=== PATIENT | female | born 1935 | race Caucasian/White ===

== ENCOUNTER 2016-08-25 15:58 | Observation (INO) | payer BC ==
[~2016-08-25] VITALS: Ht 149.9 cm; Wt 58.0 kg
[~2016-08-25 15:58] MED LIST: DYZUNK; LEVO75TA36 PO; MELO7.5T5 PO; SIMV10TA2 PO
[2016-08-25] MEDS ORDERED: LEVO75TA PO (16:27)
[2016-08-25] MEDS ORDERED: PSYL43PO PO (16:27)
[2016-08-25] MEDS ORDERED: MULTTAB58 PO (16:27)
[2016-08-25] MEDS ORDERED: METO25TA3 PO (16:27)
[2016-08-25] MEDS ORDERED: OMEG10007 PO (16:27)
[2016-08-25] MEDS ORDERED: CALC500C70 PO (16:27)
[2016-08-25] MEDS ORDERED: LISI-729 PO (16:27)
--- NOTE | 2016-08-25 16:44 | EMERGENCY ROOM VISIT NOTE ---
History Report prepared by Frandy: Deyanira Chambers Under the Supervision of: Dr. Matt Reid M.D. First contact with patient: 16:32 Chief Complaint: DIZZY Stated Complaint: DIZZY Nursing Triage Summary: patient reports weakness and dizziness "ongoing for months", syncopal episode wednesday, states "just not feeling right, when I get up I get very dizzy." Sent by [facility]. History of Present Illness The patient is an 81 year old female who presents to the Emergency Room via ambulance with complaints of worsening weakness and dizziness over the past few months. The patient reports a syncopal episode 4 days ago. She states that she woke up, after a couple of minutes, on the floor of her garage. The patient was sent to the ED today from [facility] after noticing EKG changes. She denies chest pain, shortness of breath, or any additional associated symptoms. The patient has a history of a brain aneurysm. She denies a past cardiac history. Source of History: patient Onset: Over past few months Position: other (Global ) Timing: worsening Modifying Factors (Relieving): other (None ) Associated Symptoms: No SOB, No chest pain Review of Systems See HPI for pertinent positives & negatives. A total of 10 systems reviewed and were otherwise negative. Past Medical & Surgical Medical Problems: (1) Bleeding ulcer Surgical Problems: (1) Brain aneurysm (2) [place] teeth extracted Family History FH: cancer FH: diabetes mellitus FH: stroke Social History Smoking Status: Never Smoker Alcohol Use: occasionally Drug Use: none Marital Status: single Housing Status: lives alone Occupation Status: retired Current/Historical Medications Scheduled Calcium/Vitamin D ([place] 500 Plus D), 1 TAB PO PM Fish Oil ([place]-3), 1 CAP PO DAILY Levothyroxine Sodium (Synthroid), 75 MCG PO DAILY Lisinopril (Zestril), 5 MG PO PM Metoprolol Succ (Toprol Xl) (Toprol-Xl), 25 MG PO DAILY Multiple Vitamin (Multivitamin), 1 TAB PO DAILY Psyllium (Metamucil Free & Natural), 1 TSP PO QAM Allergies Coded Allergies: No Known Allergies (Verified , 08/25/16) Physical Exam Vital Signs Date Time Temp Pulse Resp B/P Pulse Ox O2 Delivery O2 Flow Rate FiO2 08/25/16 20:59 76 20 156/87 96 Room Air 08/25/16 19:05 90 18 132/68 96 Room Air 08/25/16 17:55 67 20 195/92 97 Room Air 08/25/16 16:19 68 08/25/16 16:03 63 20 214/84 99 76 207/84 70 195/95 08/25/16 16:01 36.6 60 18 217/84 96 Room Air Physical Exam GENERAL: Patient is well appearing and in no acute distress. HEENT: Mild tenderness over left scalp. Mucous membranes moist, no nasal congestion, no scleral icterus. NECK: No stridor, no adenopathy, no meningismus, trachea is midline. LUNGS: No dyspnea. Clear to auscultation and equal bilaterally. No wheeze, no rhonchi. HEART: Regular rate and rhythm. No murmurs, rubs, gallops appreciated. ABDOMEN: Soft, nontender, bowel sounds positive, no masses appreciated, no peritonitis. BACK: No midline tenderness, no CVA tenderness EXTREMITIES: Abrasion and bruising to left [place]. Normal motion all extremities, no cyanosis, no edema. NEUROLOGIC: Alert and oriented, no acute motor or sensory deficits, no focal weakness, cranial nerves grossly intact. SKIN: No rash, no jaundice, no diaphoresis. Medical Decision & Procedures ER Provider Diagnostic Interpretation: Radiology results and stated below per my review and radiologist interpretation: CT SCAN OF THE BRAIN WITHOUT IV CONTRAST CLINICAL HISTORY: Syncope. Head injury. COMPARISON STUDY: MR angiogram of the brain dated 01/30/2014. TECHNIQUE: Unenhanced axial CT scan of the brain is performed from the vertex to the skull base. The Examination is significant degraded by streak artifact from aneurysm coils. CT DOSE: 537.48 mGy.cm FINDINGS: Brain parenchyma: There are age-related involutional changes noting moderate patchy subcortical and periventricular microangiopathic change. There is no hemorrhage, mass effect, or evidence of acute territorial ischemia by CT criteria. 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 Connolly-white matter is preserved. No extra-axial fluid collection is seen. Ventricles, sulci, cisterns: Prominent secondary to involutional change. Intracranial vasculature: There is atherosclerotic calcification of the cavernous carotid and vertebral arteries. Aneurysm coils are noted along the left aspect of the [place]. Calvarium: The skeletal structures are osteopenic. No depressed calvarial fracture is seen. Sinuses and mastoids: An air-fluid level is noted in the right maxillary antrum. Trace fluid is also seen in the left maxillary antrum. The remaining visualized paranasal sinuses are clear. The mastoid air cells are well pneumatized. Findings suggest previous left mastoid surgery. Orbits: The bony orbits are grossly intact. IMPRESSION: 1. Senescent changes as above with no hemorrhage, mass effect, or evidence of acute territorial ischemia by CT criteria. 2. Aneurysm coils are again noted in the region of the left [place]. 3. Air-fluid levels are present within the maxillary antra. Electronically signed by: Kwaku Garcia M.D. 08/25/2016 5:28 PM Dictated Date/Time: 08/25/2016 5:25 PM SINGLE VIEW CHEST CLINICAL HISTORY: Syncope. FINDINGS: An AP, portable, upright chest radiograph is compared to study dated 08/30/2006. The examination is degraded by portable technique and patient rotation. The heart is top normal for projection and there is atherosclerotic calcification of the thoracic aorta. The pulmonary vasculature is noncongested. Chronic interstitial thickening and scattered calcified granulomas are unchanged. No airspace consolidation, large pleural effusion, or pneumothorax is seen. The skeletal structures are osteopenic. The bony thorax is grossly intact. IMPRESSION: No acute cardiopulmonary abnormality. Electronically signed by: Kwaku Garcia M.D. 08/25/2016 5:08 PM Dictated Date/Time: 08/25/2016 5:07 PM Laboratory Results 08/25/16 16:12 Red Blood Count 4.85, Mean Corpuscular Volume 86.6, Mean Corpuscular Hemoglobin 29.9, Mean Corpuscular Hemoglobin Concent 34.5, Mean Platelet Volume 10.0, Neutrophils (%) (Auto) 65.8, Lymphocytes (%) (Auto) 21.5, Monocytes (%) (Auto) 9.3, Eosinophils (%) (Auto) 2.6, Basophils (%) (Auto) 0.7, Neutrophils # (Auto) 4.71, Lymphocytes # (Auto) 1.54, Monocytes # (Auto) 0.67, Eosinophils # (Auto) 0.19, Basophils # (Auto) 0.05 08/25/16 16:12 Test 08/25/16 16:12 08/25/16 16:40 White Blood Count 7.17 K/uL (4.8-10.8) Red Blood Count 4.85 M/uL (4.2-5.4) Hemoglobin 14.5 g/dL (12.0-16.0) Hematocrit 42.0 % (37-47) Mean Corpuscular Volume 86.6 fL (80-100) Mean Corpuscular Hemoglobin 29.9 pg (25-34) Mean Corpuscular Hemoglobin Concent 34.5 g/dl (32-36) Platelet Count 311 K/uL (130-400) Mean Platelet Volume 10.0 fL (7.4-10.4) Neutrophils (%) (Auto) 65.8 % Lymphocytes (%) (Auto) 21.5 % Monocytes (%) (Auto) 9.3 % Eosinophils (%) (Auto) 2.6 % Basophils (%) (Auto) 0.7 % Neutrophils # (Auto) 4.71 K/uL (1.4-6.5) Lymphocytes # (Auto) 1.54 K/uL (1.2-3.4) Monocytes # (Auto) 0.67 K/uL (0.11-0.59) Eosinophils # (Auto) 0.19 K/uL (0-0.5) Basophils # (Auto) 0.05 K/uL (0-0.2) RDW Standard Deviation 47.0 fL (36.4-46.3) RDW Coefficient of Variation 14.8 % (11.5-14.5) Immature Granulocyte % (Auto) 0.1 % Immature Granulocyte # (Auto) 0.01 K/uL (0.00-0.02) Anion Gap 8.0 mmol/L (3-11) Est Creatinine Clear Calc Drug Dose 34.3 ml/min Estimated GFR () 62.3 Estimated GFR (Non- 53.7 BUN/Creatinine Ratio 24.6 (10-20) Calcium Level 9.0 mg/dl (8.5-10.1) Phosphorus Level 3.7 mg/dl (2.5-4.9) Magnesium Level 2.4 mg/dl (1.8-2.4) Total Creatine Kinase 51 U/L (26-192) Creatine Kinase MB 0.7 ng/ml (0.5-3.6) Creatine Kinase MB Ratio 1.4 (0-3.0) Troponin I < 0.015 ng/ml (0-0.045) Thyroid Stimulating Hormone (TSH) 0.761 uIu/ml (0.300-4.500) Urine Color YELLOW Urine Appearance CLEAR (CLEAR) Urine pH 7.0 (4.5-7.5) Urine Specific [place] 1.006 (1.000-1.030) Urine Protein NEG (NEG) Urine Glucose (UA) NEG (NEG) Urine Ketones NEG (NEG) Urine Occult Blood NEG (NEG) Urine Nitrite NEG (NEG) Urine Bilirubin NEG (NEG) Urine Urobilinogen NEG (NEG) Urine Leukocyte Esterase SMALL (NEG) Urine WBC (Auto) 1-5 /hpf (0-5) Urine RBC (Auto) 0-4 /hpf (0-4) Urine Hyaline Casts (Auto) 0 /lpf (0-5) Urine Epithelial Cells (Auto) 0-5 /lpf (0-5) Urine Bacteria (Auto) NEG (NEG) Laboratory results as reviewed by me. Medications Administered Medications (Trade) Dose Ordered Sig/Dary Route Start Time Stop Time Status Last Admin Dose Admin Labetalol HCl (Normodyne IV) 10 mg NOW STAT IV 08/25/16 17:41 08/25/16 17:42 DC 08/25/16 17:55 10 MG Calcium/Vitamin D (Caltrate Plus Tab) 1 tab PM PO 08/25/16 21:00 09/24/16 20:59 08/25/16 23:40 1 TAB Lisinopril (Zestril Tab) 5 mg PM PO 08/25/16 21:00 09/24/16 20:59 08/25/16 23:40 5 MG ECG Indication: syncope Rate (beats per minute): 69 Rhythm: sinus rhythm (with PVC) Findings: T-wave inversion (Anterolateral) Comparison ECG Date: RHEUMATOLOGISTFebruary 2016 Change: T- wave inversions are new when compared to EKG from February 2016. Findings are similar to EKG performed just RHEUMATOLOGIST. ED Course 1633: The patient was evaluated in room C2. A complete history and physical exam was performed. 1740: Ordered Labetalol HCL 10 mg IV. 1819: Discussed the patient's case with Dr. Burns ([facility]). She will evaluate the patient for further management and care. 1953: Ordered Zofran Injection 4 mg IV. Medical Decision Differential diagnosis: Etiologies such as vasovagal event, infection, hypoglycemia, electrolyte abnormalities, cardiac sources, intracerebral event, toxicologic, neurologic, as well as others were entertained. 81 yr old female arrives for evaluation post syncope. Seen at PCP and found to have acute EKG changes. She does not have elevated trop at this time. She is without acute chest pain not other symptoms currently. Notes lightheaded with standing/moving over last few months. CT head looks OK. She will need to come in for further work-up and evaluation of syncope/ekg abnormalities. Consults Time Called: 1741 Consulting Physician: Dr. Burns ([facility]) Returned Call: [phone] Discussed the patient's case with Dr. Burns ([facility]). She will evaluate the patient for further management and care. Impression Primary Impression: Syncope and collapse Additional Impressions: Generalized weakness T wave inversion in EKG Acute electrocardiogram changes Scribe Attestation The scribe's documentation has been prepared under my direction and personally reviewed by me in its entirety. I confirm that the note above accurately reflects all work, treatment, procedures, and medical decision making performed by me. Departure Information Dispostion Being Evaluated By Hospitalist Referrals Gosia Mata, C.R.N.P (PCP) Patient Instructions My [facility] Problem Qualifiers
[2016-08-25 16:52] LABS: BASO % 0.7 %; BASO ABS # 0.05 K/uL (0-0.2); COMPLETE YES; EOS % 2.6 %; IG% 0.1 %; LYMPH % 21.5 %; LYMPH ABS # 1.54 K/uL (1.2-3.4); MEAN CELL VOLUME 86.6 fL (80-100); MEAN CORPUSCULAR HEMOGLOBIN 29.9 pg (25-34); MEAN CORPUSCULAR HGB CONC 34.5 g/dl (32-36); MONO % 9.3 %; NEUT % 65.8 %; PLATELET COUNT 311 K/uL (130-400); RED BLOOD COUNT 4.85 M/uL (4.2-5.4); WHITE BLOOD COUNT 7.17 K/uL (4.8-10.8)
[2016-08-25 16:58] LABS: BLOOD UREA NITROGEN 24 mg/dl (7-18); BUN/CREATININE RATIO 24.6 (10-20); CARBON DIOXIDE 27 mmol/L (21-32); CHLORIDE 105 mmol/L (98-107); CREATININE 0.98 mg/dl (0.60-1.20); GLUCOSE 87 mg/dl (70-99); MAGNESIUM 2.4 mg/dl (1.8-2.4); POTASSIUM 4.1 mmol/L (3.5-5.1); SODIUM 140 mmol/L (136-145)
[2016-08-25 17:03] LABS: CKMB/CK RATIO 1.4 (0-3.0); PHOSPHORUS 3.7 mg/dl (2.5-4.9)
[2016-08-25 17:08] LABS: URINE APPEARANCE CLEAR (CLEAR); URINE BILIRUBIN NEG (NEG); URINE COLOR YELLOW; URINE EPITHELIAL CELL AUTO 0-5 /lpf (0-5); URINE NITRITE NEG (NEG); URINE SPECIFIC GRAVITY 1.006 (1.000-1.030); UROBILINOGEN NEG (NEG); ZZUR CULT IF INDIC CLEAN CATCH NO
[2016-08-25 17:09] LABS: MANUAL MICROSCOPIC REQUIRED? NO; REVIEW REQ? NO
--- NOTE | 2016-08-25 17:09 | DIAGNOSTIC IMAGING REPORT ---
SINGLE VIEW CHEST CLINICAL HISTORY: Syncope. FINDINGS: An AP, portable, upright chest radiograph is compared to study dated 08/30/2006. The examination is degraded by portable technique and patient rotation. The heart is top normal for projection and there is atherosclerotic calcification of the thoracic aorta. The pulmonary vasculature is noncongested. Chronic interstitial thickening and scattered calcified granulomas are unchanged. No airspace consolidation, large pleural effusion, or pneumothorax is seen. The skeletal structures are osteopenic. The bony thorax is grossly intact. IMPRESSION: No acute cardiopulmonary abnormality. Electronically signed by: Kwaku Garcia M.D. 08/25/2016 5:08 PM Dictated Date/Time: 08/25/2016 5:07 PM
--- NOTE | 2016-08-25 17:30 | DIAGNOSTIC IMAGING REPORT ---
CT SCAN OF THE BRAIN WITHOUT IV CONTRAST CLINICAL HISTORY: Syncope. Head injury. COMPARISON STUDY: MR angiogram of the brain dated 01/30/2014. TECHNIQUE: Unenhanced axial CT scan of the brain is performed from the vertex to the skull base. The Examination is significant degraded by streak artifact from aneurysm coils. CT DOSE: 537.48 mGy.cm FINDINGS: Brain parenchyma: There are age-related involutional changes noting moderate patchy subcortical and periventricular microangiopathic change. There is no hemorrhage, mass effect, or evidence of acute territorial ischemia by CT criteria. 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 [place]-white matter is preserved. No extra-axial fluid collection is seen. Ventricles, sulci, cisterns: Prominent secondary to involutional change. Intracranial vasculature: There is atherosclerotic calcification of the cavernous carotid and vertebral arteries. Aneurysm coils are noted along the left aspect of the [place]. Calvarium: The skeletal structures are osteopenic. No depressed calvarial fracture is seen. Sinuses and mastoids: An air-fluid level is noted in the right maxillary antrum. Trace fluid is also seen in the left maxillary antrum. The remaining visualized paranasal sinuses are clear. The mastoid air cells are well pneumatized. Findings suggest previous left mastoid surgery. Orbits: The bony orbits are grossly intact. IMPRESSION: 1. Senescent changes as above with no hemorrhage, mass effect, or evidence of acute territorial ischemia by CT criteria. 2. Aneurysm coils are again noted in the region of the left [place]. 3. Air-fluid levels are present within the maxillary antra. Electronically signed by: Kwaku Garcia M.D. 08/25/2016 5:28 PM Dictated Date/Time: 08/25/2016 5:25 PM
[2016-08-25] MEDS ORDERED: LABETALOL HCL IV 5 MG/ML 20ML IV STA (17:41)
[2016-08-25] MEDS ORDERED: ONDANSETRON INJ 2 MG/ML 2 ML VIAL IV STA (19:54)
[2016-08-25] MEDS ORDERED: CALCIUM 600MG + VIT D 400 IU TAB PO SCH (21:00)
[2016-08-25] MEDS ORDERED: ACETAMINOPHEN 325 MG TAB PO PRN (21:00)
[2016-08-25] MEDS ORDERED: LISINOPRIL 5 MG TAB PO SCH (21:00)
[2016-08-25] MEDS ORDERED: ONDANSETRON INJ 2 MG/ML 2 ML VIAL IV PRN (21:00)
[2016-08-25] MEDS ORDERED: ASPIRIN 81 MG ECTAB PO ONE (22:15)
[2016-08-25] MEDS ORDERED: LISINOPRIL 5 MG TAB PO ONE (23:45)
[2016-08-26] VITALS (8 sets, daily range): BP systolic 112–160; BP diastolic 71–81; PULSE 57–80; TEMP 36.4–37; O2SAT 95–98; Ht 149.9 cm; Wt 58.0 kg
--- NOTE | 2016-08-26 00:16 | History and Physical ---
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 She reports that she has been feeling lightheaded and nauseated almost every morning for the last month. Then, 4 days ago she was letting her dog out the side door of the garage and felt extremely weak, lightheaded, and felt like she was going to pass out. She went to lower herself to sit down and the next thing she knew she woke up on the floor of the garage. She denies any associated chest pains or shortness of breath, no heart palpitations, no headache. She does report she has lost about 25 pounds over the last year since her , but notes that was most likely due to the fact that she is no longer snacking with him anymore. She has checked her vital signs at home around the times of these episodes and shows me a log which shows consistently normal blood pressures in the 130s over 80s range with heart rate from 68-75 at rest. The lightheadedness does not necessarily come on first thing in the morning when she gets out of bed, and she does not feel like the room is spinning around her. She has no new changes in her medications is not taking any new supplements or [id number] meds. Of note in the emergency room she was significantly hypertensive at 217/84, and she is not positive on her orthostatic measurements. She was given labetalol and her blood pressure came down. She had a nuclear stress test in March 2013 that she was told was within normal limits. She had an echocardiogram in October 2014 that showed mild aortic insufficiency, grade 1 diastolic dysfunction, and a preserved left ventricular ejection fraction of 60-65%. She will be admitted for syncope, one month of presyncope and nausea, and new anterolateral T-wave inversions on her ECG. Past Medical/Surgical History Past Medical History: Hypertension Acquired hypothyroidism status post thyroidectomy for goiter and incidental note of thyroid cancer Anterior cerebral artery aneurysm status post coiling Osteoporosis GERD/peptic ulcer disease with history of upper GI bleeding Hyperlipidemia Mild aortic regurgitation Chronic diastolic dysfunction Past Surgical History: Coiling of anterior cerebral artery aneurysm [place] teeth extracted Total thyroidectomy BTL Family History FH: cancer FH: diabetes mellitus FH: stroke Noncontributory due to advanced age Social History Smoking Status: Former Smoker (as a teenager) Alcohol Use: none Drug Use: none Marital Status: ( passed way from Alzheimer's one year ago) Housing status: lives alone (in the independent living portion of an assisted- living facility) Occupational Status: retired (was an elementary schoolteacher) Immunizations History of Influenza Vaccine: N/A History of Tetanus Vaccine?: Yes History of Pneumococcal: Yes History of Hepatitis B Vaccine: Unknown Multi-Drug Resistant Organisms History of MDRO: No Allergies Coded Allergies: No Known Allergies (Verified , 08/25/16) Home Medications Scheduled Calcium/Vitamin D (Os-Conrad 500 Plus D), 1 TAB PO PM Fish Oil ([place]stable-3), 1 CAP PO DAILY Levothyroxine Sodium (Synthroid), 75 MCG PO DAILY Lisinopril (Zestril), 5 MG PO PM Metoprolol Succ (Toprol Xl) (Toprol-Xl), 25 MG PO DAILY Multiple Vitamin (Multivitamin), 1 TAB PO DAILY Psyllium (Metamucil Free & Natural), 1 TSP PO QAM Review of Systems Constitutional: + fatigue, + weight loss, No chills, No fever ENT: No problem reported Respiratory: No dyspnea on exertion, No shortness of breath Cardiovascular: No chest pain, No edema, No palpitations Abdomen: + constipation (in the last 2 months, has had to take fiber supplement daily to have a bowel movement), No GI bleeding, No nausea, No pain, No vomiting Musculoskeletal: + joint pain (left lateral hip with occasional twinge of pain since her episode of syncope 4 days ago, but is able to walk on it) Genitourinary - Female: No problem reported Neurologic: No problem reported Psychiatric: No problem reported Endocrine: No problem reported Hematologic / Lymphatic: No problem reported Integumentary: No rash Allergic / Immunologic: No problem reported Physical Exam Vital Signs Date Time Temp Pulse Resp B/P Pulse Ox O2 Delivery O2 Flow Rate FiO2 08/25/16 20:59 76 20 156/87 96 Room Air 08/25/16 19:05 90 18 132/68 96 Room Air 08/25/16 17:55 67 20 195/92 97 Room Air 08/25/16 16:19 68 08/25/16 16:03 63 20 214/84 99 76 207/84 70 195/95 08/25/16 16:01 36.6 60 18 217/84 96 Room Air General Appearance: WD/WN, no apparent distress Head: normocephalic, atraumatic Eyes: normal inspection, PERRL, EOMI, sclerae normal ENT: normal ENT inspection, hearing grossly normal, TMs normal, pharynx normal Neck: supple, no adenopathy, no JVD, no carotid bruits, trachea midline Respiratory/Chest: lungs clear, normal breath sounds, no respiratory distress, no accessory muscle use Cardiovascular: regular rate, rhythm, no edema, no gallop, no JVD, no murmur, normal peripheral pulses Abdomen/GI: normal bowel sounds, non tender, soft, no organomegaly, no pulsatile mass, + pertinent finding (incisional midline scar present in the infraumbilical region) Back: normal range of motion Extremities/Musculoskelatal: normal inspection, no calf tenderness, normal capillary refill, no pedal edema, normal range of motion (left hip with full range of motion without pain or tenderness to palpation) Neurologic/Psych: no motor/sensory deficits, alert, normal mood/affect, oriented x 3 Skin: normal color, warm/dry, no rash, + pertinent finding (superficial scabbed over abrasion left anterior tibia) Lymphatic: no adenopathy Diagnostics Laboratory Results Results Past 24 Hours Test 08/25/16 16:12 08/25/16 16:40 Range/Units White Blood Count 7.17 4.8-10.8 K/uL Red Blood Count 4.85 4.2-5.4 M/uL Hemoglobin 14.5 12.0-16.0 g/dL Hematocrit 42.0 37-47 % Mean Corpuscular Volume 86.6 80-100 fL Mean Corpuscular Hemoglobin 29.9 25-34 pg Mean Corpuscular Hemoglobin Concent 34.5 32-36 g/dl Platelet Count 311 130-400 K/uL Mean Platelet Volume 10.0 7.4-10.4 fL Neutrophils (%) (Auto) 65.8 % Lymphocytes (%) (Auto) 21.5 % Monocytes (%) (Auto) 9.3 % Eosinophils (%) (Auto) 2.6 % Basophils (%) (Auto) 0.7 % Neutrophils # (Auto) 4.71 1.4-6.5 K/uL Lymphocytes # (Auto) 1.54 1.2-3.4 K/uL Monocytes # (Auto) 0.67 0.11-0.59 K/uL Eosinophils # (Auto) 0.19 0-0.5 K/uL Basophils # (Auto) 0.05 0-0.2 K/uL RDW Standard Deviation 47.0 36.4-46.3 fL RDW Coefficient of Variation 14.8 11.5-14.5 % Immature Granulocyte % (Auto) 0.1 % Immature Granulocyte # (Auto) 0.01 0.00-0.02 K/uL Sodium Level 140 136-145 mmol/L Potassium Level 4.1 3.5-5.1 mmol/L Chloride Level 105 98-107 mmol/L Carbon Dioxide Level 27 21-32 mmol/L Anion Gap 8.0 3-11 mmol/L Blood Urea Nitrogen 24 7-18 mg/dl Creatinine 0.98 0.60-1.20 mg/dl Est Creatinine Clear Calc Drug Dose 34.3 ml/min Estimated GFR () 62.3 Estimated GFR (Non- 53.7 BUN/Creatinine Ratio 24.6 10-20 Random Glucose 87 70-99 mg/dl Calcium Level 9.0 8.5-10.1 mg/dl Phosphorus Level 3.7 2.5-4.9 mg/dl Magnesium Level 2.4 1.8-2.4 mg/dl Total Creatine Kinase 51 26-192 U/L Creatine Kinase MB 0.7 0.5-3.6 ng/ml Creatine Kinase MB Ratio 1.4 0-3.0 Troponin I < 0.015 0-0.045 ng/ml Thyroid Stimulating Hormone (TSH) 0.761 0.300-4.500 uIu/ml Urine Color YELLOW Urine Appearance CLEAR CLEAR Urine pH 7.0 4.5-7.5 Urine Specific [place] 1.006 1.000-1.030 Urine Protein NEG NEG Urine Glucose (UA) NEG NEG Urine Ketones NEG NEG Urine Occult Blood NEG NEG Urine Nitrite NEG NEG Urine Bilirubin NEG NEG Urine Urobilinogen NEG NEG Urine Leukocyte Esterase SMALL NEG Urine WBC (Auto) 1-5 0-5 /hpf Urine RBC (Auto) 0-4 0-4 /hpf Urine Hyaline Casts (Auto) 0 0-5 /lpf Urine Epithelial Cells (Auto) 0-5 0-5 /lpf Urine Bacteria (Auto) NEG NEG Diagnostic Radiology Chest x-ray with no acute findings Head CT with chronic appearing lacunar infarcts in the thalami bilaterally, aneurysm coil present, no acute changes EKG EKG with normal sinus rhythm and PVCs, T-wave inversions in the anterior leads changed from previous Impression Assessment and Plan This patient is an 81-year-old female with a history of hypertension, acquired hypothyroidism status post thyroidectomy for goiter, 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 Syncope, nausea, ECG changes, history of mild aortic regurgitation- progressively worsening symptoms leading up to syncope over the last month. CBC , electrolytes, renal function, and thyroid function are all normal here. ECG is definitely changed from previous. It is possible that these vague symptoms of nausea and lightheadedness are an anginal equivalent. Not likely to be related to anything of a neurological sort. She is not orthostatic, and no heart block seen on the ECG or telemetry so far. Her last stress test was in 2012 and was reportedly normal. -Admit to telemetry for observation for cardiac arrhythmia -Consult cardiology appreciated. If no significant events occur on telemetry, may need long-term cardiac monitoring upon discharge -Repeat ECG in the morning and trend cardiac biomarkers -Check transthoracic echocardiogram or worsening valvular disease or wall motion abnormalities -Start aspirin 81 mg once daily -Only minor injuries to the left hip sustained in the fall-no further workup needed -PT/OT evaluation requested Hypertension-seems to be labile here which is unusual for her. Could be related to anxiety. Is now improved after IV labetalol given in the ER. -Continue home lisinopril 5 mg daily taken in the evening and metoprolol XL 25 mg in the morning Hypothyroidism-TSH here is normal -Continue home dose of levothyroxine Chronic lacunar infarcts seen on head CT-patient asymptomatic -Starting aspirin 81 mg once daily -Continue to control blood pressure History of brain aneurysm status post coiling-stable, asymptomatic, no treatment needed. Osteoporosis-previously on Fosamax which caused bleeding peptic ulcer disease. -Follow as an outpatient DVT prophylaxis: SCDs Disposition: Full code, to home in 1 day most likely Level of Care Telemetry Resuscitation Status FULL RESUSCITATION VTE Prophylaxis VTE Risk Assessment Done? Y/N: Yes Risk Level: Low Given or contraindicated: SCD's Additional Copies To Gosia Mata, TayaNMarshaP
[2016-08-26] MEDS ORDERED: IV FLUIDS COMPLETED PRN (01:00)
[2016-08-26 04:24] LABS: CKMB/CK RATIO 1.6 (0-3.0)
[2016-08-26] MEDS ORDERED: LEVOTHYROXINE 75 MCG TAB PO SCH (06:30)
[2016-08-26] MEDS ORDERED: NURSING VERBAL MED ORDER ONE (06:30)
[2016-08-26] MEDS ORDERED: PANTOprazole INJ 40 MG in SYRINGE 0 ML IV ONE (07:15)
--- NOTE | 2016-08-26 08:15 | Hospitalist Progress Note ---
Hospitalist Progress Note Date of Service Aug 26, 2016. (Vangie Restrepo PA-C) Subjective Pt evaluation today including: conversation w/ patient, conversation w/ family , physical exam, chart review, lab review, review of studies, review of inpatient medication list Pain: None Voiding: no voiding problems The patient was seen and examined this morning. Her daughter is present at bedside. Pt notes she had some left sided chest pain which was sharp and then disappeared overnight. She altered nursing at that time and an EKG was done, although it didn't show any new findings. She also reports some pressure in her chest which seems to come and go after walking and exerting herself. She feels this has worsened over the past few weeks. Denies lightheadedness or dizziness with walking this morning. She lives at home alone, normally does not require oxygen or assistance with ambulation. Constitutional: No chills, No fever, No sweats Eyes: No diplopia, No worsening of vision ENT: No hearing loss, No nasal symptoms Respiratory: No cough, No shortness of breath, No sputum Cardiovascular: + chest pain (see HPI), No palpitations Abdomen: + constipation (last Bm was yesterday), No diarrhea, No nausea, No pain, No vomiting Musculoskeletal: No joint pain, No muscle pain, No swelling Female : No dysuria, No incontinence Neurologic: No numbness/tingling, No weakness Skin: No itch, No rash (Vangie Restrepo PA-C) Objective Vital Signs Date Time Temp Pulse Resp B/P Pulse Ox O2 Delivery O2 Flow Rate FiO2 08/26/16 07:51 36.4 58 18 156/76 95 Room Air 08/26/16 06:35 57 20 160/73 98 Room Air 08/26/16 04:30 37.0 72 16 139/72 97 08/26/16 00:56 64 19 143/81 95 08/26/16 00:50 36.5 62 18 143/81 Room Air 08/26/16 00:16 67 08/25/16 23:45 75 18 181/99 98 Room Air 08/25/16 20:59 76 20 156/87 96 Room Air 08/25/16 19:05 90 18 132/68 96 Room Air 08/25/16 17:55 67 20 195/92 97 Room Air 08/25/16 16:19 68 08/25/16 16:03 63 20 214/84 99 76 207/84 70 195/95 08/25/16 16:01 36.6 60 18 217/84 96 Room Air (Vangie Restrepo PA-C) Physical Exam General Appearance: WD/WN, no apparent distress, + thin Eyes: PERRL, EOMI ENT: hearing grossly normal, pharynx normal Neck: no adenopathy, no JVD Respiratory/Chest: chest non-tender, lungs clear, no respiratory distress, no accessory muscle use Cardiovascular: regular rate, rhythm, + systolic murmur Abdomen: normal bowel sounds, non tender, soft, no organomegaly Extremities: non-tender, no pedal edema, no calf tenderness Neurologic/Psychiatric: alert, normal mood/affect, oriented x 3 Skin: normal color, warm/dry (Vangie Restrepo PA-C) Laboratory Results Last 24 Hours Test 08/25/16 16:12 08/25/16 16:40 08/26/16 03:42 White Blood Count 7.17 K/uL Red Blood Count 4.85 M/uL Hemoglobin 14.5 g/dL Hematocrit 42.0 % Mean Corpuscular Volume 86.6 fL Mean Corpuscular Hemoglobin 29.9 pg Mean Corpuscular Hemoglobin Concent 34.5 g/dl Platelet Count 311 K/uL Mean Platelet Volume 10.0 fL Neutrophils (%) (Auto) 65.8 % Lymphocytes (%) (Auto) 21.5 % Monocytes (%) (Auto) 9.3 % Eosinophils (%) (Auto) 2.6 % Basophils (%) (Auto) 0.7 % Neutrophils # (Auto) 4.71 K/uL Lymphocytes # (Auto) 1.54 K/uL Monocytes # (Auto) 0.67 K/uL Eosinophils # (Auto) 0.19 K/uL Basophils # (Auto) 0.05 K/uL RDW Standard Deviation 47.0 fL RDW Coefficient of Variation 14.8 % Immature Granulocyte % (Auto) 0.1 % Immature Granulocyte # (Auto) 0.01 K/uL Sodium Level 140 mmol/L Potassium Level 4.1 mmol/L Chloride Level 105 mmol/L Carbon Dioxide Level 27 mmol/L Anion Gap 8.0 mmol/L Blood Urea Nitrogen 24 mg/dl Creatinine 0.98 mg/dl Est Creatinine Clear Calc Drug Dose 34.3 ml/min Estimated GFR () 62.3 Estimated GFR (Non- 53.7 BUN/Creatinine Ratio 24.6 Random Glucose 87 mg/dl Calcium Level 9.0 mg/dl Phosphorus Level 3.7 mg/dl Magnesium Level 2.4 mg/dl Total Creatine Kinase 51 U/L 43 U/L Creatine Kinase MB 0.7 ng/ml 0.7 ng/ml Creatine Kinase MB Ratio 1.4 1.6 Troponin I < 0.015 ng/ml < 0.015 ng/ml Thyroid Stimulating Hormone (TSH) 0.761 uIu/ml Urine Color YELLOW Urine Appearance CLEAR Urine pH 7.0 Urine Specific [place] 1.006 Urine Protein NEG Urine Glucose (UA) NEG Urine Ketones NEG Urine Occult Blood NEG Urine Nitrite NEG Urine Bilirubin NEG Urine Urobilinogen NEG Urine Leukocyte Esterase SMALL Urine WBC (Auto) 1-5 /hpf Urine RBC (Auto) 0-4 /hpf Urine Hyaline Casts (Auto) 0 /lpf Urine Epithelial Cells (Auto) 0-5 /lpf Urine Bacteria (Auto) NEG (Vangie Restrepo PA-C) Assessment and Plan This patient is an 81-year-old female with a history of hypertension, acquired hypothyroidism status post thyroidectomy for goiter, 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 Syncope, nausea, ECG changes, history of mild aortic regurgitation- progressively worsening symptoms leading up to syncope over the last month. - CBC, electrolytes, renal function, and thyroid function are all normal here. - ECG is definitely changed from previous. ? if nausea and lightheadedness are an anginal equivalent. Does not appear to be neurological at this time - last stress test was in 2012 and was reportedly normal. - Consult cardiology- appreciate recs, If no significant events occur on telemetry, may need long-term cardiac monitoring upon discharge - Troponins are negative x 2 - 2D echo ordered - Start aspirin 81 mg once daily - PT/OT evaluation requested Hypertension- - Anxiety likely playing a part in her sx - Continue home lisinopril 5 mg daily taken in the evening and metoprolol XL 25 mg in the morning Hypothyroidism-TSH here is normal -Continue home dose of levothyroxine Chronic lacunar infarcts seen on head CT-patient asymptomatic - Starting aspirin 81 mg once daily - Continue to control blood pressure History of brain aneurysm status post coiling-stable, asymptomatic, no treatment needed. Osteoporosis-previously on Fosamax which caused bleeding peptic ulcer disease. -Follow as an outpatient DVT prophylaxis: SCDs Disposition: Full code, likely d/c within 24 hours. Pt is from home, lives alone. May benefit from home health services upon discharge. (Vangie Restrepo, PAEmigdio) Attending Attestation: Pt seen/examined, chart reviewed, and care plan d/w GERONIMO Restrepo. I agree w/ the dupree components of her documentation. Pt's main complaint is that of fatigue for several months. Daughter confirmed that this has been a concern. The dizziness is her other main concern. Dizziness is worse with standing and activity. VSS no fever BPs normal gen - nad neck - no carotid bruits heart - RRR, s1, s2 lungs - CTA b/l abd - soft, NT, BS+ ext - no edema neuro - strength 5/5 x 4 exts A/P: 1. dizziness - etiology unclear. Cortisol normal. B12 normal. Will order carotid duplex study to r/o ICA stenosis and posterior circulation abnormalities. Echo without structural abnormalities. 2. fatigue - etiology also unclear. Will need outpatient f/u. 3. abnormal EKG with inverted T waves - to have outpatient stress test. Ifeoma MURPHY MD (Chandan Murphy MD)
[2016-08-26] MEDS: NITROGLYCERIN OINT 2% 1GM PACKET EXT SCH ×3 (08:18→16:00)
[2016-08-26] MEDS ORDERED: METOPROLOL SUCC 25MG EXT REL TAB PO SCH (09:00)
[2016-08-26] MEDS ORDERED: ASPIRIN 81 MG ECTAB PO SCH (09:00)
[2016-08-26] MEDS ORDERED: MULTIVITAMIN TAB PO SCH (09:00)
[2016-08-26] MEDS ORDERED: PSYLLIUM 58.6% PWD PACK S\\F PO SCH (09:00)
[2016-08-26 11:53] LABS: CKMB/CK RATIO 1.4 (0-3.0)
[2016-08-26 11:57] LABS: BUN/CREATININE RATIO 18.9 (10-20); CALCIUM 9.1 mg/dl (8.5-10.1); CREATININE 0.98 mg/dl (0.60-1.20); POTASSIUM 4.2 mmol/L (3.5-5.1)
--- NOTE | 2016-08-26 12:04 | CARDIOLOGY CONSULTATION ---
DATE OF CONSULTATION: 08/26/2016 REFERRING PHYSICIAN: Dr. Maribell Burns. HISTORY OF PRESENT ILLNESS: Mrs. Beth Rae is an 81-year-old woman with a remote history of presyncopal symptoms, who presented to her primary care physician yesterday primarily for symptoms of increasing fatigue and morning weakness. At that point, she had reported an episode of syncope which occurred 4 days prior, seemed that morning the patient awoke and had an element of fatigue, mild dizziness and nausea. She attempted to walk her dog and upon exiting the house became acutely diaphoretic and presyncope. She attempted to sit down to alleviate her symptoms but later found herself on the floor after what appears to have been a brief loss of consciousness. The patient then ambulated back into her house and laid down for approximately 1 hour prior to resolution of those symptoms. The patient states for approximately 1 month, she had similar symptoms every morning, generally upon awakening she feels somewhat weak, fatigued and dizzy. Some mornings are accompanied by nausea as well. She has not had overt vomiting associated with these episodes. She has not had additional episodes of syncope. Generally speaking, the patient sits or lies down for up to 1 hour with eventual resolution of the symptoms. She does not report similar symptoms later in the day. She has curtailed her activity over the past several weeks due to increasing fatigue and generalized weakness. She does not report symptoms of overt palpitations. Occasionally, when lying on her left side or pressing against her left chest, she will be able to feel her heartbeat; however, she does not report symptoms of tachycardia or other palpitation. There were no palpitations associated with the syncopal episode. She does not appear to have overt dizziness with changes in position. She does not have other exertional symptoms with the exception of her fatigue. She denies significant breathing difficulty. She has no symptoms of orthopnea. She does awaken several times at night for unclear reasons. She may in fact have been awoken up by her cat. She denies symptoms of chest discomfort with the exception of occasional sharp pain in the left pectoral area. Last evening she did appear to have a similar symptom which was fairly brief in duration. There were no symptoms of chest discomfort associated with her syncopal episode. She does not generally have symptoms of chest discomfort or pain in the morning times when she is otherwise feeling poorly. Currently, the patient is feeling well. She has no symptoms of chest discomfort or breathing difficulty. She is somewhat tired as she did not sleep well last evening. She denies significant dizziness at this time. PAST MEDICAL HISTORY: Significant for: 1. Cerebral artery aneurysm, status post coiling. 2. Hypertension. 3. Hypothyroidism. 4. Osteoporosis. 5. Gastroesophageal reflux disease with a history of gastrointestinal hemorrhage. 6. Hyperlipidemia. 7. Valvular heart disease with mild aortic regurgitation. PAST SURGICAL HISTORY: Includes the aforementioned cerebral artery aneurysm coiling, thyroidectomy, wisdom tooth extraction, and tubal ligation. OUTPATIENT MEDICAL THERAPY: Includes levothyroxine, lisinopril, metoprolol, and several supplements. MEDICAL ALLERGIES: No known medical allergies. FAMILY HISTORY: Noncontributory. No history of premature coronary disease. SOCIAL HISTORY: The patient is essentially a nonsmoker with very remote history of tobacco use. She is currently , [place] with [place] . Denies significant alcohol use. REVIEW OF SYSTEMS: Complete 10-system review of systems was performed and the pertinent positives are noted in the history of present illness. She did have a fairly severe cold several weeks ago, which involved nasal low congestion, this appears to have resolved. She has infrequent indigestion-type symptoms which have resolved since not eating late at night. She has effected a significant weight loss over the past several months but attributes this to eating less snacks since her . She has not noticed any swelling in her lower extremities. She has not noticed any change in her bowel habits. No melena or hematochezia. She has not actually had any vomiting. PHYSICAL EXAMINATION: GENERAL: She was alert and oriented. Mood and affect appeared normal. She answered all questions appropriately. VITAL SIGNS: Include blood pressure 156/76 with a pulse of 58. HEENT: Sclerae were anicteric. Pupils were equal, reactive to light and accommodation. Extraocular movements were intact. NECK: Palpation of the submandibular region did not reveal any significant lymphadenopathy. The carotids were palpable bilaterally. I did not appreciate any bruits on auscultation. There was no evidence of jugular venous distention. The thyroid was not enlarged. LUNGS: Auscultation of both lung may revealed them to be clear. There were no rales, wheezes or rhonchi. She had normal respiratory effort without use of accessory muscles. CARDIAC: Revealed her to be in a regular rhythm. S1 and S2 appeared to be normal. I did not appreciate any significant murmurs on evaluation. PMI was not markedly displaced. EXTREMITIES: Evaluation of both wrists revealed radial pulses that were equal in intensity. There was no evidence of cyanosis or clubbing. Evaluation of lower extremities did not reveal any significant peripheral edema. I did not appreciate any rashes on exam today. LABORATORY STUDIES: Obtained at [facility] include a white cell count of 7.1, hemoglobin of 14.5, a platelet count of 311. Sodium was 140, potassium was 4.1, BUN was 24, creatinine was 0.9. Serial cardiac biomarkers were all less than detectable limit. TSH was normal at 0.7. Serial 12-lead EKGs were obtained which revealed the patient to be in a normal sinus rhythm or sinus bradycardia. There was evidence of T-wave inversions in anterior precordial leads concerning for ischemia. This was a definite change from last EKG obtained as an outpatient in 02/2016. Single-view chest x-ray was obtained at the time of admission, which was reported as normal. The patient also underwent CT scanning of the head based on her history of aneurysm and recent fall. There were no significant findings on that examination. Review of the patient's outpatient record reveals a history of echocardiography, last obtained in 10/2014. At that time, the patient was noted to have normal left ventricular systolic function with stage I diastolic dysfunction and mild aortic regurgitation. The patient had previously undergone exercise echocardiography in 2009 which was normal. The patient also underwent exercise perfusion imaging in 2012 which was again normal. ASSESSMENT AND PLAN: 1. Syncope. The etiology of the patient's syncope is unclear. In the past, she has had preserved left ventricular systolic function which puts her in a category of patients who are likely to do well. She has recurrent symptoms in the morning of dizziness, lightheadedness and nausea, which could represent a noncardiac etiology for her symptoms. She did have some bradycardia at the time of admission and is on metoprolol as an outpatient; however, this has been true for some time and her heart rates this morning are normal. No evidence of significant conduction disease on EKG or telemetry. The patient's hemoglobin level was normal at the time of admission and she has no other history consistent with gastrointestinal hemorrhage at this point. Blood pressures are somewhat high but not grossly abnormal. I think at this point we will await the results of her echocardiogram. If indeed that is normal, we could consider continued outpatient monitoring with event monitor or possibly implantable loop recorder should that be unfruitful and the patient continue to have symptoms. 2. Abnormal EKG. The patient's EKG certainly has changed and is concerning for coronary disease based on the T-wave inversions. The patient has not had any symptoms consistent with angina or coronary insufficiency. I think if her echocardiogram is normal, we can repeat either exercise perfusion imaging or exercise echocardiography in order to evaluate her for occult coronary disease. If indeed her echocardiogram is abnormal, there has been a significant change since 2014, we may elect to proceed with angiography.
--- NOTE | 2016-08-26 15:31 | ECHOCARDIOGRAM REPORT ---
*NOTICE TO RECEIVING DEMOCRAT AGENCY This information is strictly Confidential and protected under [place] law. [place] law prohibits you from making any further disclosure of this information unless further disclosure is expressly permitted by the written consent of the person to whom it pertains or is authorized by law. A general authorization for the release of medical or other information is not sufficient for this purpose. Hospital accepts no responsibility if the information is made available to any other person, INCLUDING THE PATIENT. Interpretation Summary * Name: DEL PATHAK Study Date: 08/26/2016 01:21 PM BP: 119/72 mmHg * Patient Location: [facility] HR: 64 * : 1935 (M/d/yyyy) Gender: Female Height: 59 in * Age: 81 yrs Ethnicity: CA Weight: 127 lb * Ordering Physician: Maribell Burns * Performed By: Li Schultz RDCS * * Reason For Study: Syncope * BSA: 1.5 m2 * -- Conclusions -- * Left ventricular systolic function is normal. * Grade I diastolic dysfunction, (abnormal relaxation pattern). * Moderate aortic regurgitation. * There is moderate tricuspid regurgitation. * Right ventricular systolic pressure is normal. Procedure Details * A complete two-dimensional transthoracic echocardiogram was performed (2D, M-mode, Doppler and color flow Doppler). Left Ventricle * The left ventricle is normal in size. * There is normal left ventricular wall thickness. * The basal septum is thickened and angulated consistent with sigmoid septum. * Ejection Fraction = >70 %. * Left ventricular systolic function is normal. * Grade I diastolic dysfunction, (abnormal relaxation pattern). Right Ventricle * The right ventricle is normal in size and function. Atria * The left atrial size is normal. * Right atrial size is normal. Mitral Valve * The mitral valve leaflets appear thickened, but open well. * There is trace mitral regurgitation. Tricuspid Valve * The tricuspid valve anatomy is normal. * There is moderate tricuspid regurgitation. * Right ventricular systolic pressure is normal. Aortic Valve * The aortic valve is tricuspid. The leaflet thickness if normal. There is no aortic stenosis, and no significant insufficiency. * No hemodynamically significant valvular aortic stenosis. * Moderate aortic regurgitation. Great Vessels * The aortic root and proximal ascending aorta are normal sized. Pericardium/Pleural * There is no pericardial effusion. MMode 2D Measurements and Calculations IVSd 1.0 cm LVIDd 3.2 cm LVIDs 1.7 cm LVPWd 0.99 cm IVS/LVPW 1.0 FS 46.8 % EDV(Teich) 41.0 ml ESV(Teich) 8.4 ml EF(Teich) 79.4 % EDV(cubed) 32.8 ml ESV(cubed) 4.9 ml EF(cubed) 84.9 % LV mass(C)d 92.5 grams LV mass(C)dI 60.8 grams/m\S\2 SV(Teich) 32.5 ml SI(Teich) 21.4 ml/m\S\2 SV(cubed) 27.8 ml SI(cubed) 18.3 ml/m\S\2 Ao root diam 3.1 cm Ao root area 7.3 cm\S\2 ACS 1.2 cm LA dimension 2.1 cm asc Aorta Diam 2.6 cm LA/Ao 0.69 LVOT diam 2.0 cm LVOT area 3.1 cm\S\2 LVAd ap4 15.2 cm\S\2 LVLd ap4 5.9 cm EDV(MOD-sp4) 31.6 ml EDV(sp4-el) 33.2 ml LVAs ap4 7.2 cm\S\2 LVLs ap4 4.6 cm ESV(MOD-sp4) 10.8 ml ESV(sp4-el) 9.6 ml EF(MOD-sp4) 65.9 % EF(sp4-el) 71.2 % LVAd ap2 15.9 cm\S\2 LVLd ap2 6.7 cm EDV(MOD-sp2) 31.5 ml EDV(sp2-el) 32.7 ml LVAs ap2 7.8 cm\S\2 LVLs ap2 5.6 cm ESV(MOD-sp2) 10.1 ml ESV(sp2-el) 9.6 ml EF(MOD-sp2) 68.0 % EF(sp2-el) 70.5 % LVLd %diff 9.7 % EDV(MOD-bp) 33.1 ml LVLs %diff 14.6 % ESV(MOD-bp) 11.1 ml EF(MOD-bp) 66.4 % SV(MOD-sp4) 20.8 ml SI(MOD-sp4) 13.7 ml/m\S\2 SV(MOD-sp2) 21.4 ml SI(MOD-sp2) 14.1 ml/m\S\2 SV(MOD-bp) 22.0 ml SI(MOD-bp) 14.4 ml/m\S\2 SV(sp4-el) 23.6 ml SI(sp4-el) 15.6 ml/m\S\2 SV(sp2-el) 23.1 ml SI(sp2-el) 15.2 ml/m\S\2 Doppler Measurements and Calculations MV E max robert 62.7 cm/sec MV A max robert 100.7 cm/sec MV E/A 0.62 MV dec time 0.21 sec Ao V2 max 129.5 cm/sec Ao max PG 6.7 mmHg Ao max PG (full) 0.47 mmHg CARY(V,A) 3.0 cm\S\2 CARY(V,D) 3.0 cm\S\2 AI max robert 344.2 cm/sec AI max PG 47.4 mmHg AI dec slope 223.6 cm/sec\S\2 AI P1/2t 450.8 msec LV V1 max PG 6.2 mmHg LV V1 max 124.9 cm/sec PA V2 max 90.0 cm/sec PA max PG 3.2 mmHg PA acc slope 428.3 cm/sec\S\2 PA acc time 0.13 sec PI max robert 145.0 cm/sec PI max PG 8.4 mmHg PI dec slope 146.0 cm/sec\S\2 PI P1/2t 291.0 msec TR max robert 190.0 cm/sec PA pr(Accel) 22.0 mmHg
[2016-08-26 17:46] LABS: FERRITIN 55.2 ng/ml (8.0-388.0)
--- NOTE | 2016-08-26 19:51 | DIAGNOSTIC IMAGING REPORT ---
BILATERAL CAROTID DOPPLER STUDY HISTORY: Mental status change syncope COMPARISON: None. TECHNIQUE: Real-time, grayscale, and color Doppler sonography of the carotid arteries was performed. Imaging reviewed in the transverse and longitudinal planes. All measurements were calculated based on NASCET criteria. FINDINGS: Antegrade flow is seen in the bilateral vertebral arteries. The brachial pressures are hemodynamically similar. Moderate plaque formation bilaterally The peak systolic velocity within the right ICA is 73. The right systolic ratio is 0.82. The peak systolic velocity within the left ICA is 118. The left systolic ratio is 1.3. IMPRESSION: No hemodynamically significant stenosis seen within the carotid arteries. Moderate plaque formation bilaterally Electronically signed by: Javier Pack M.D. 08/26/2016 7:50 PM Dictated Date/Time: 08/26/2016 7:49 PM
[2016-08-26] MEDS ORDERED: OMEP40CA41 PO (20:02)
--- NOTE | 2016-08-26 20:12 | Discharge Instructions ---
Discharge Instructions Date of Service Aug 26, 2016. Admission Reason for Admission: 1. recent passing out spell 2. dizziness/nausea 3. abnormal EKG Discharge Discharge Diagnosis / Problem: dizziness / nausea / abnormal EKG / recent passing out spell Discharge Goals Goal(s): Learn about illness, Diagnostic testing, Therapeutic intervention Activity Recommendations Activity Limitations: as noted below Until you have your stress test please avoid heavy exertional activity such as - 1. going to the gym 2. heavy lifting (20 pounds or more) 3. heavy yard work or house work Walking, etc is ok . Instructions / Follow-Up Instructions / Follow-Up From Dr. Bedoya - 1. Please follow-up with Dr. Blue's office to schedule outpatient stress test (to rule out coronary artery disease) as well as a possible 30-day monitor (to rule out abnormal heart rhythms as the cause of your symptoms). 2. Please have your family doctor check a cholesterol panel. If these are elevated would recommend treatment of your cholesterol, especially in light of your CAT scan of the brain findings (possible old strokes). 3. Consider MRI brain if additional work-up for your dizziness is negative and to definitively rule out old strokes. 4. Your iron levels were normal. 5. Your sed rate (a lab test that looks at inflammation in your body) was normal. 6. It is ok to take a baby aspirin (81mg) daily. 7. Your lab testing for heart attack was normal. 8. Your thyroid function (TSH) and cortisol level were both normal. 9. In the event some of your nausea is due to reflux disease would consider taking an acid lumber tripper daily. I called into the [facility] omeprazole 40mg once daily for you. You are at higher risk of reflux disease given your prior history of ulcers. 10. Please speak with your family doctor about an "overnight oximetry study" to check your night-time oxygen levels. Of note - your oxygen levels were normal during the day and at night while at [facility]. Return to [facility] with any shortness of breath, chest pain, jaw pain, arm pain, extreme fatigue, recurrent passing out spells, etc. Current Hospital Diet Patient's current hospital diet: AHA Diet (Heart Healthy) Discharge Diet Recommended Diet: AHA Diet (Heart Healthy) Procedures Procedures Performed: 1. echocardiogram - normal function, overall normal heart valves. 2. CAT scan of the brain - question of old lacunar (silent) strokes deep in the brain. Evidence of prior aneurysm surgery. 3. carotid artery ultrasound - mild plaque build-up (hardening of the arteries) but no significant blockage seen. Pending Studies Studies pending at discharge: no Medical Emergencies . Who to Call and When: Medical Emergencies: If at any time you feel your situation is an emergency, please call 911 immediately. . Non-Emergent Contact Non-Emergency issues call your: Primary Care Provider Call Non-Emergent contact if: temperature is above 100.5, your pain is not controlled, your pain is worsening, your pain is unusual for you, your pain is concerning you . . "Provider Documentation" section prepared by Chandan Bedoya. VTE Core Measure Inpt VTE Proph given/why not?: SCD's
--- NOTE | 2016-08-31 21:17 | Discharge Summary ---
Discharge Summary Date of Service Aug 31, 2016. Discharge Summary Admission Date: Aug 25, 2016 at 21:07 Discharge Date: Aug 26, 2016 Discharge Disposition: Home Principal Diagnosis: syncope Problems/Secondary Diagnoses: 1. chronic dizziness 2. fatigue 3. Hypertension 4. Acquired hypothyroidism status post thyroidectomy for goiter and incidental note of thyroid cancer 5. Anterior cerebral artery aneurysm status post coiling 6. Osteoporosis 7. GERD/peptic ulcer disease with history of upper GI bleeding 8. Hyperlipidemia 9. aortic regurgitation 10. chronic diastolic dysfunction Immunizations: Have You Had Influenza Vaccine: N/A History of Tetanus Vaccine?: Yes History of Pneumococcal: Yes History of Hepatitis B Vaccine: Unknown Procedures: 1. echocardiogram: * -- Conclusions -- * Left ventricular systolic function is normal. * Grade I diastolic dysfunction, (abnormal relaxation pattern). * Moderate aortic regurgitation. * There is moderate tricuspid regurgitation. * Right ventricular systolic pressure is normal. 2. CT head negative for acute stroke. 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 Aneurysmal coils seen. 3. Carotid artery doppler negative for ICA stenosis. Antegrade flow seen in both vertebral arteries. Consultations: cardiology - Benji Blue MD Medication Reconciliation New Medications: Omeprazole (Prilosec) 40 Mg Cap 40 MG PO QAM, #30 CAP 2 Refills Continued Medications: Calcium/Vitamin D (Os-Conrad 500 Plus D) Tab 1 TAB PO PM, TAB Fish Oil ([place]-3) 1 Ea Cap 1 CAP PO DAILY, CAP Levothyroxine Sodium (Synthroid) 75 Mcg Tab 75 MCG PO DAILY, TAB Lisinopril (Zestril) 5 Mg Tab 5 MG PO PM, TAB Metoprolol Succ (Toprol Xl) (Toprol-Xl) 25 Mg Tabcr 25 MG PO DAILY, #30 TAB Multiple Vitamin (Multivitamin) 1 Tab Tab 1 TAB PO DAILY, TAB Psyllium (Metamucil Free & Natural) 43 % Pow 1 TSP PO QAM Referrals At Discharge Follow up Referrals: Hearing Aid Specialist Referral - Please Call For Appointment with Benji Blue MD Discharge Exam Physical Exam: General Appearance: WD/WN, no apparent distress ENT: pharynx normal Neck: supple, thyroid normal, no JVD, no carotid bruits Respiratory/Chest: lungs clear, no respiratory distress, no accessory muscle use Cardiovascular: regular rate, rhythm, no gallop, no murmur, normal peripheral pulses Abdomen / GI: normal bowel sounds, non tender, soft, no organomegaly Extremities: no pedal edema Neurologic/Psychiatric: no motor/sensory deficits, alert, normal mood/affect , oriented x 3 Hospital Course HISTORY OF PRESENT ILLNESS: The patient is an 81-year-old female with a history of hypertension, acquired hypothyroidism status post thyroidectomy for goiter, 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 She reports that she has been feeling lightheaded and nauseated almost every morning for the last month. Then, 4 days ago she was letting her dog out the side door of the garage and felt extremely weak, lightheaded, and felt like she was going to pass out. She went to lower herself to sit down and the next thing she knew she woke up on the floor of the garage. She denies any associated chest pains or shortness of breath, no heart palpitations, no headache. She does report she has lost about 25 pounds over the last year since her , but notes that was most likely due to the fact that she is no longer snacking with him anymore. She has checked her vital signs at home around the times of these episodes and shows me a log which shows consistently normal blood pressures in the 130s over 80s range with heart rate from 68-75 at rest. The lightheadedness does not necessarily come on first thing in the morning when she gets out of bed, and she does not feel like the room is spinning around her. She has no new changes in her medications is not taking any new supplements or [id number] meds. Of note in the emergency room she was significantly hypertensive at 217/84, and she is not positive on her orthostatic measurements. She was given labetalol and her blood pressure came down. She had a nuclear stress test in March 2013 that she was told was within normal limits. She had an echocardiogram in October 2014 that showed mild aortic insufficiency, grade 1 diastolic dysfunction, and a preserved left ventricular ejection fraction of 60-65%. She will be admitted for syncope, one month of presyncope and nausea, and new anterolateral T-wave inversions on her ECG. HOSPITAL COURSE: During the patient's brief hospitalization cardiac enzymes were negative, telemetry was normal, echocardiogram showed no pathology to account for her symptoms, sed rate/vitamin B12/cortisol levels were normal, and carotid duplex study was normal. Head CT did show old lacunar infarcts but no new stroke or ICH. She was seen in consult by Dr. Benji Blue, cardiology, who recommended stress test in light of her abnormal EKG as well as the potential for an outpatient 30-day event monitor to exclude dysrhythmia as the cause of her dizziness. We discussed doing an MRI and MRA of the brain in light of the lacunar infarcts seen on CT head as well as her prior h/o cerebral aneurysm. These will be pursued as an outpatient. At discharge the following were recommended - * outpatient cardiology follow-up * outpatient stress test * consideration of 30-day event monitor * use of prescription strength PPI in the event her nausea was reflux related * consideration of MRI/MRA brain Total Time Spent: Greater than 30 minutes This includes examination of the patient, discharge planning, medication reconciliation, and communication with other providers. Discharge Instructions Please refer to the electronic Patient Visit Report (Discharge Instructions) for additional information. Follow-Up 1. see PCP within [address] Blue, cardiology, within 1-2 weeks for outpatient stress test and possible 30 day event monitor Additional Copies To Benji Blue MD; Gosia Mata C.R.N.P
--- NOTE | 2016-09-02 12:02 | EDITING REQUIRED CODING QUERY ---
SUPPORTING DIAGNOSIS NEEDED A supporting diagnosis is required for the test/procedure performed on this patient in order for us to be reimbursed by the patient's insurance. Please provide a supporting diagnosis for the following test/procedure listed below next to the test name along with your signature. *If there is no additional diagnosis for this patient that would support the following test/procedure please document that below next to the test/procedure. Test(s)/Procedure(s) that require a supporting diagnosis: * VITAMIN B-12 LEVEL DIAGNOSIS: fatigue, dizziness * DOS: 08/26/16 Provider Signature: _Chandan Bedoya Date: _09/02/16 Thank you Hel[facility] Information Management For questions please call [phone]
== END 2016-08-26 20:25 | disposition home or self-care (01) ==
LOC: ENRESERVDT → ENRESERVTM → EDBD 15:58 → C.EDC 15:59 → C.EDINP 21:07 → C.MED 08-26 01:23
PROVIDERS: ADMIT Family Medicine; ATTEND Internal Medicine
DX: R55 Syncope and collapse (principal); R42 Dizziness and giddiness; R11.0 Nausea; R94.31 Abnormal electrocardiogram [ECG] [EKG]; E03.9 Hypothyroidism, unspecified; I10 Essential (primary) hypertension; M81.0 Age-related osteoporosis without current pathological fracture; E78.5 Hyperlipidemia, unspecified; Z87.891 Personal history of nicotine dependence; I35.1 Nonrheumatic aortic (valve) insufficiency; Z83.3 Family history of diabetes mellitus; Z82.3 Family history of stroke

== ENCOUNTER → 2016-09-04 | Outpatient (CLI) | payer BC ==
[~2016-09-04] MED LIST changes: +CALC500C70 PO; -DYZUNK; +LEVO75TA PO; -LEVO75TA36 PO; +LISI-729 PO; -MELO7.5T5 PO; +METO25TA3 PO; +MULTTAB58 PO; +OMEG10007 PO; +OMEP40CA41 PO; +PSYL43PO PO; +REGADENOSON 0.4 MG/5 ML SYR ONE; -SIMV10TA2 PO
--- NOTE | 2016-09-04 15:33 | MYOCARDIAL PERFUSION SCAN ---
ONE-DAY NUCLEAR MEDICINE TECHNETIUM-99M CARDIOLITE MYOCARDIAL PERFUSION SCAN: CLINICAL HISTORY: The patient has had an episode of syncope and has an abnormal baseline EKG with T-wave inversions diffusely. COMPARISON: None. TECHNIQUE: For the stress portion of the study, 30.4 mCi of Technetium 99 m Cardiolite IV was injected at 11:06 a.m. on 09/04/2016. 30 minutes following the injection, imaging of the heart was performed in multiple projection. For the rest portion of the study, 10.7 mCi of Technetium 99 m Cardiolite was injected IV at 9:20 a.m. One hour following the injection, imaging of the heart was performed in the same projections. For the stress portion of the study, 0.4 mg of Lexiscan was injected intravenously as per protocol. The patient tolerated the infusion well. There were no further EKG changes over the baseline abnormality. FINDINGS: The short axis, vertical long axis, horizontal long axis images were reviewed in detail. There is normal perfusion at both stress and rest. There is no evidence of a myocardial infarction. The left ventricle demonstrates hyperdynamic systolic function without wall motion abnormalities. The left ventricular ejection fraction is calculated at 73%. There are no wall motion abnormalities. IMPRESSION: 1. No scintigraphic evidence of myocardial ischemia or myocardial infarction. 2. No Lexiscan induced chest pain. 3. No EKG changes over the baseline abnormality. 4. Hyperdynamic left ventricular systolic function with an ejection fraction of 73%. There are no wall motion abnormalities. [facility]
== END | disposition home or self-care (01) ==
LOC: C.NUCL 08:51
PROVIDERS: ATTEND Internal Medicine Clinical Cardiac Electrophysiology
DX: R94.31 Abnormal electrocardiogram [ECG] [EKG] (principal)

== ENCOUNTER → 2016-09-08 | Outpatient (CLI) | payer BC ==
[~2016-09-08] MED LIST changes: -REGADENOSON 0.4 MG/5 ML SYR ONE
[2016-09-08 13:15] LABS: BASO % 0.6 %; BASO ABS # 0.04 K/uL (0-0.2); COMPLETE YES; EOS % 3.1 %; HEMATOCRIT 42.8 % (37-47); IG% 0.2 %; LYMPH % 14.4 %; LYMPH ABS # 0.93 K/uL (1.2-3.4); MEAN CELL VOLUME 86.8 fL (80-100); MEAN CORPUSCULAR HEMOGLOBIN 29.4 pg (25-34); MEAN CORPUSCULAR HGB CONC 33.9 g/dl (32-36); MEAN PLATELET VOLUME 10.1 fL (7.4-10.4); MONO % 13.5 %; NEUT % 68.2 %; PLATELET COUNT 270 K/uL (130-400); RED BLOOD COUNT 4.93 M/uL (4.2-5.4); WHITE BLOOD COUNT 6.45 K/uL (4.8-10.8)
== END | disposition home or self-care (01) ==
LOC: C.LABPVFM 09:46
PROVIDERS: ATTEND Nurse Practitioner
DX: D64.9 Anemia, unspecified (principal)

== ENCOUNTER → 2017-02-12 | Outpatient (CLI) | payer BC ==
[2017-02-12 13:06] LABS: BLOOD UREA NITROGEN 18 mg/dl (7-18); BUN/CREATININE RATIO 20.5 (10-20); CALCIUM 9.5 mg/dl (8.5-10.1); CARBON DIOXIDE 29 mmol/L (21-32); CHLORIDE 103 mmol/L (98-107); CREATININE 0.88 mg/dl (0.60-1.20); GLUCOSE 76 mg/dl (70-99); POTASSIUM 4.4 mmol/L (3.5-5.1); SODIUM 137 mmol/L (136-145)
== END | disposition home or self-care (01) ==
LOC: C.LABPVFM 10:20
PROVIDERS: ATTEND Nurse Practitioner
DX: I10 Essential (primary) hypertension (principal)

== ENCOUNTER → 2017-07-16 | Outpatient (CLI) | payer BC ==
[2017-07-16 18:06] LABS: BASO % 0.3 %; BASO ABS # 0.02 K/uL (0-0.2); EOS % 2.6 %; EOS ABS # 0.19 K/uL (0-0.5); HEMATOCRIT 41.4 % (37-47); HEMOGLOBIN 14.2 g/dL (12.0-16.0); IG# 0.02 K/uL (0.00-0.02); LYMPH % 18.7 %; LYMPH ABS # 1.38 K/uL (1.2-3.4); MEAN CELL VOLUME 88.3 fL (80-100); MEAN CORPUSCULAR HEMOGLOBIN 30.3 pg (25-34); MEAN CORPUSCULAR HGB CONC 34.3 g/dl (32-36); MEAN PLATELET VOLUME 9.9 fL (7.4-10.4); MONO % 9.5 %; NEUT % 68.6 %; NEUT ABS # 5.07 K/uL (1.4-6.5); PLATELET COUNT 285 K/uL (130-400); RED CELL DISTRIBUTION WIDTH CV 14.7 % (11.5-14.5); RED CELL DISTRIBUTION WIDTH SD 47.5 fL (36.4-46.3); WHITE BLOOD COUNT 7.38 K/uL (4.8-10.8)
[2017-07-16 18:35] LABS: BLOOD UREA NITROGEN 23 mg/dl (7-18); CARBON DIOXIDE 28 mmol/L (21-32); CREATININE 1.01 mg/dl (0.60-1.20); GLUCOSE 100 mg/dl (70-99); POTASSIUM 4.1 mmol/L (3.5-5.1); SODIUM 139 mmol/L (136-145)
== END | disposition home or self-care (01) ==
LOC: C.LABPVFM 15:52
PROVIDERS: ATTEND Nurse Practitioner
DX: M81.0 Age-related osteoporosis without current pathological fracture (principal); E55.9 Vitamin D deficiency, unspecified; I10 Essential (primary) hypertension; D64.9 Anemia, unspecified

== ENCOUNTER → 2017-10-19 | Outpatient (CLI) | payer BC ==
--- NOTE | 2017-10-19 12:37 | DIAGNOSTIC IMAGING REPORT ---
PELVIS 1 OR 2 VIEW ROUTINE, R HIP UNILATERAL 2 VIEWS CLINICAL HISTORY: HIP PAIN ACUTE RT, LEG PAIN RT COMPARISON STUDY: Pelvis 12/03/2010. FINDINGS: Large superolateral osteophyte at the left acetabulum. This contains a subtle lucency suggestive of an age-indeterminate fracture. No fracture dislocation within the right hip. The sacrum is intact. 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 This has progressed. Pelvic phleboliths and uterine fibroids are again noted. Subchondral cystic change within the femoral head. This is likely due to the long-standing degenerative change. IMPRESSION: 1. Large superolateral osteophyte at the left acetabulum which contains a subtle lucency suggestive of an age-indeterminate fracture. Please correlate for pain at this location to assess for an acute injury. 2. Otherwise, no acute fracture or dislocation within the right hip. 3. 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 Electronically signed by: Skyler Braga M.D. 10/19/2017 12:36 PM Dictated Date/Time: 10/19/2017 12:28 PM
== END | disposition home or self-care (01) ==
LOC: C.RADPV 12:10
PROVIDERS: ATTEND Nurse Practitioner
DX: M25.752 Osteophyte, left hip (principal); M16.0 Bilateral primary osteoarthritis of hip; M79.604 Pain in right leg

== ENCOUNTER → 2017-12-21 | Outpatient (CLI) | payer BC ==
[2017-12-21 13:14] LABS: BASO % 0.4 %; BASO ABS # 0.04 K/uL (0-0.2); EOS % 1.7 %; EOS ABS # 0.17 K/uL (0-0.5); HEMATOCRIT 42.2 % (37-47); HEMOGLOBIN 14.2 g/dL (12.0-16.0); IG# 0.02 K/uL (0.00-0.02); LYMPH % 12.2 %; LYMPH ABS # 1.23 K/uL (1.2-3.4); MEAN CELL VOLUME 89.8 fL (80-100); MEAN CORPUSCULAR HEMOGLOBIN 30.2 pg (25-34); MEAN CORPUSCULAR HGB CONC 33.6 g/dl (32-36); MEAN PLATELET VOLUME 9.6 fL (7.4-10.4); MONO % 8.8 %; MONO ABS # 0.89 K/uL (0.11-0.59); NEUT % 76.7 %; NEUT ABS # 7.71 K/uL (1.4-6.5); PLATELET COUNT 320 K/uL (130-400); RED CELL DISTRIBUTION WIDTH CV 15.5 % (11.5-14.5); RED CELL DISTRIBUTION WIDTH SD 50.7 fL (36.4-46.3); WHITE BLOOD COUNT 10.06 K/uL (4.8-10.8)
[2017-12-21 14:12] LABS: ALBUMIN 3.8 gm/dl (3.4-5.0); ALKALINE PHOSPHATASE 67 U/L (45-117); ALT/SGPT 25 U/L (12-78); AST/SGOT 19 U/L (15-37); BLOOD UREA NITROGEN 16 mg/dl (7-18); CALCIUM 9.1 mg/dl (8.5-10.1); CARBON DIOXIDE 28 mmol/L (21-32); CREATININE 0.87 mg/dl (0.60-1.20); GLUCOSE 110 mg/dl (70-99); POTASSIUM 4.1 mmol/L (3.5-5.1); SODIUM 136 mmol/L (136-145); TOTAL PROTEIN 7.9 gm/dl (6.4-8.2)
== END | disposition home or self-care (01) ==
LOC: C.LABPVFM 11:29
PROVIDERS: ATTEND Nurse Practitioner
DX: R42 Dizziness and giddiness (principal)